=== PATIENT | female | born 1965 | race American Indian/Alaskan Native ===

== ENCOUNTER 2023-09-24 05:00 | Emergency (ER) | payer OTHER, BC, SELFPAY ==
--- NOTE | ~2023-09-24 | CT_ITS ---
CT of the Abdomen and Pelvis: Indication: Abdominal pain Technique: 2.5 mm axial scans were obtained through the abdomen and pelvis following intravenous adm inistration of 100 cc of Omnipaque 350. Dose reduction technique was used on this scan by utilizing a utomated exposure control and iterative reconstruction technique. The dose-length product (DLP) was 4 78.58 mGy-cm. Findings: Scans through the lung bases are unremarkable. There is diffuse hepatic steatosis. Cholecystectomy clips are present. The spleen, pancreas, adrenals and kidneys are within normal limits. No evidence of aortic aneurysm. No lymphadenopathy. No bowel obstruction or bowel wall thickening. There is no evidence to suggest acute appendicitis. Images through the pelvis were performed. Urinary bladder unremarkable. No pelvic mass seen. No ascit es. Impression: Diffuse hepatic steatosis. No other significant findings. Reviewed, dictated and finalized at [facility]. Impression: Diffuse hepatic steatosis. No other significant findings.
[2023-09-24 05:01] VITALS: BP 176/102; PULSE 99; RESP 16; TEMP 36.4; O2SAT 97
[2023-09-24 05:24] LABS: Basophils Absolute Auto 0.1 K/mm3 (0.0-0.1); Basophils Percent Auto 0.8 % (0.2-1.2); Eosinophils Absolute Auto 0.1 K/mm3 (0-0.3); Eosinophils Percent Auto 1.1 % (0-4.4); Hematocrit 43.6 % (37.0-47.0); Immature Granulocyte Absolute 0.06 K/mm3 (0.00-0.031); Immature Granulocyte Percent A 0.6 % (0-0.5); Lymphocytes Absolute Auto 2.07 K/mm3 (0.9-3.2); Lymphocytes Percent Auto 19.2 % (18.3-44.2); Mean Corpuscular HGB Conc 34.4 g/dl (32-36); Mean Corpuscular Hemoglobin 32.8 pg (26-34); Mean Corpuscular Volume 95.4 fl (80-100); Mean Platelet Volume 8.7 fl (7.4-10.4); Monocytes Absolute Auto 0.4 K/mm3 (0.1-0.6); Monocytes Percent Auto 3.8 % (2.6-8.5); Neutrophils Percent Auto 74.5 % (45.5-73.1); Platelet Count Result 235 k/mm3 (150-375); Red Blood Count 4.57 M/mm3 (4.2-5.4); Red Cell Distribution Width 13.7 % (11.5-14.5); White Blood Count 10.8 K/mm3 (4.5-10.0)
[2023-09-24 05:34] LABS: Alanine Aminotransferase 39 U/L (6-35); Albumin Level 4.9 g/dL (3.5-5.1); Alkaline Phosphatase 114 U/L (38-126); Anion Gap 13 mmol/L (4-12); Aspartate Amino Transferase 33 U/L (14-36); Bilirubin,Total 0.7 mg/dL (0.2-1.3); Blood Urea Nitrogen 18 mg/dL (7-17); Calcium 9.6 mg/dL (8.4-10.2); Carbon Dioxide 24 mmol/L (22-30); Chloride 104 mmol/L (98-107); Estimated CRCL calculation 47 ml/min; Estimated Glomerular Filt Rate 46; Glucose 272 mg/dL (65-110); Lipase 76 U/L (23-300); Potassium 4.1 mmol/L (3.4-5.0); Sodium 141 mmol/L (137-145)
[2023-09-24 05:44] LABS: Appearance Urine Cloudy (Clear); Bacteria Urine None Seen /hpf; Bilirubin Urine Negative (Negative); Blood Urine 3+ (Negative); Calcium Oxalate Crystals Urine Present /hpf; Color Urine Yellow (Yellow); Glucose Urine UA 1+ mg/dL (Negative); Ketones Urine Trace mg/dL (Negative); Leukocyte Esterase Ur Trace LEU/UL (Negative); Need Manual Microscopic Reviewed; Nitrate Urine Negative (Negative); Protein Urine 1+ mg/dL (Negative); RBC Urine >100 /hpf (0-2); Specific Grav Ur 1.023 (1.001-1.035); Squamous Epithelial Cell Urine Moderate /hpf (Few)
[2023-09-24 05:46] LABS: Add Urine Microscopic? YES
[2023-09-24 05:48] LABS: Lactic Acid Reflex 3.1 mmol/L (0.7-2.0)
--- NOTE | 2023-09-24 05:54 | ED.ABDPAIN ---
HPI - Abdominal Pain General Chief Complaint: Abdominal Pain Stated Complaint: right side pain radiating to hip Time Seen by Provider: 09/24/23 05:17 History of Present Illness HPI narrative: Patient is a 58-year-old female who presents to the emergency department this morning complaining of right lower quadrant abdominal pain. Patient states the pain initially started in her right flank and migrated to right lower quadrant. Patient denies any similar symptoms in the past and denies any history of kidney stones. Patient admits that the pain feels like a spasm like pain, and although she is currently not having a lot of pain, shortly prior to arrival to the ED the pain did reach a 10/10 on the pain scale. Patient admits that the pain has been colicky in nature. She had 1 episode of vomiting at home secondary to pain. Denies any urinary symptoms including dysuria, admits to mild hematuria but states that she has always had a little bit of blood in her urine ever since she was a child. Patient denies any fevers or chills at home is currently denying any additional symptoms at this time. Related Data Allergies Allergy/AdvReac Type Severity Reaction Status Date / Time Quinolones Allergy Mild Verified 03/10/14 11:13 ciprofloxacin Allergy Unknown Verified 10/23/14 14:40 levofloxacin Allergy Unknown Verified 10/23/14 14:40 metoprolol Allergy Unknown Ecchymosis Verified 12/28/16 11:34 penicillin G Allergy Unknown Verified 11/27/12 10:58 Penicillins Allergy Unknown Verified 10/23/14 14:40 red dye Allergy Unknown Verified 11/27/12 10:58 Review of Systems Review of Systems: All systems are reviewed and are negative unless stated otherwise in the HPI. PMFSH Family History Family History Mother Hypertension Family history of kidney disease Family history of heart disease in male family member before age 55 Patient's mother is in good health Sibling Asthma Patient's brother is in good health Grandparent Family history of kidney disease Family history of heart disease in male family member before age 55 Father Patient's father is in good health Other Diabetes mellitus Family history of cardiovascular disease Social History Social History Smoking status: Never smoker Alcohol intake: never Exam Narrative: General: Alert, awake, afebrile, in no acute distress. Cardiovascular: Regular rate and rhythm, no murmurs, rubs or gallops, no peripheral edema. Respiratory: Clear to auscultation bilaterally, no tachypnea, no wheezing, no rhonchi, no rubs, no respiratory distress. Abdomen: Soft, nontender, nondistended, no rebound, no guarding, no peritoneal signs. Musculoskeletal: No joint swelling or deformity, normal muscle tone. Skin: No rashes or petechia, no signs of infection. Psychiatric: Alert and oriented, normal behavior and judgment for situation. Neurological: Alert and oriented to person, place, and time. Follows all commands. No focal deficits, speech is clear and fluent. Course Vital Signs Vital signs: Vital Signs Temperature 97.6 F 09/24/23 05:01 Pulse Rate 99 09/24/23 05:01 Respiratory Rate 16 09/24/23 05:01 Blood Pressure 176/102 H 09/24/23 05:01 Pulse Oximetry 97 09/24/23 05:01 Oxygen Delivery Room Air 09/24/23 05:01 Temperature 97.6 F 09/24/23 05:01 Pulse Rate 94 09/24/23 06:42 Respiratory Rate 16 09/24/23 06:42 Blood Pressure 138/86 09/24/23 06:42 Pulse Oximetry 100 09/24/23 06:42 Oxygen Delivery Room Air 09/24/23 05:01 MDM - Abdominal Pain MDM Narrative Medical decision making narrative: The patient was evaluated by myself in the emergency department. History is obtained from patient who is an independent historian and physical exam was performed. External medical records were reviewed at this time. IV was established and pertine
[2023-09-24] MEDS: KETOROLAC 15 MG/ML VIAL (*BKC) IV PUSH (05:59)
[2023-09-24] MEDS: ONDANSETRON INJ 4 MG/2 ML VIAL IV PUSH (05:59)
[2023-09-24] MEDS: SODIUM CHLORIDE 0.9% IV 1,000 ML 999 ML IV CONT (06:00)
[2023-09-24 06:42] VITALS: BP 138/86; PULSE 94; RESP 16; O2SAT 100
[2023-09-24 07:12] VITALS: BP 137/85; PULSE 85; RESP 18; O2SAT 99
[2023-09-24 08:37] LABS: Reflex Lactic Acid Yes or No Add Lactic
== END 2023-09-24 07:13 | disposition home or self-care (01) ==
PROVIDERS: Emergency Provider Emergency Medicine; PCP Family Medicine
DX: R10.31 Right lower quadrant pain (principal); E86.0 Dehydration; K76.0 Fatty (change of) liver, not elsewhere classified
CPT/HCPCS: 36415; 74177; 80053; 81001; 81025; 83605; 83690; 85025; 87086; 96361; 96374; 96375; 99284; J1885; J2405; J7030; Q9967

== ENCOUNTER 2023-09-27 08:38 | Outpatient (CLI) | payer OTHER, BC, SELFPAY ==
[2023-09-27 09:40] LABS: Cholesterol 237 mg/dL (0-200); HDL Direct 43 mg/dL; Triglycerides 306 mg/dL (<150)
[2023-09-27 09:49] LABS: Hemoglobin A1C 6.8 % (<5.7)
[2023-09-27 09:51] LABS: LDL Cholesterol Direct 158 mg/dL
== END 2023-09-27 08:39 | disposition home or self-care (01) ==
LOC: ANHLAB 08:42
PROVIDERS: PCP Family Medicine; Visit Provider Family Medicine
DX: R73.09 Other abnormal glucose (principal); R63.5 Abnormal weight gain; E78.2 Mixed hyperlipidemia
CPT/HCPCS: 36415; 80061; 83036; 84443